=== PATIENT | male | born 1985 | race Caucasian/White ===

== ENCOUNTER → 2016-07-27 | Outpatient (CLI) | payer BC ==
--- NOTE | 2016-07-27 15:49 | DIAGNOSTIC IMAGING REPORT ---
ABDOMEN COMPLETE (US) CLINICAL HISTORY: Abdominal and back pain. COMPARISON STUDY: No previous studies for comparison. FINDINGS: The pancreas appears sonographically normal. The gallbladder appears sonographically normal. There is no ductal dilatation. The common bile duct measures 3 mm. There is a 7 mm echogenic focus within the left lobe of the liver. This is consistent with although not specific for a hepatic hemangioma. The right kidney measures 11.2 cm in length. The left kidney measures 10.5 cm in length. No focal renal masses are visualized. There is no hydronephrosis. There is no evidence of abdominal aortic dilatation. The IVC appears normal. Bilateral ureteral jets are visualized. The spleen is mildly enlarged measuring 13.2 cm. IMPRESSION: 1. Ultrasonographically normal gallbladder and pancreas. No evidence of ductal dilatation 2. Ultrasonographically normal kidneys 3. 7 mm echogenic focus within the left lobe of the liver. This is consistent with although not specific for a hepatic hemangioma 4. Mild splenomegaly (13.2 cm). Electronically signed by: Darin Patterson M.D. 07/27/2016 3:48 PM Dictated Date/Time: 07/27/2016 3:46 PM
== END | disposition home or self-care (01) ==
LOC: C.ULTR 14:59
PROVIDERS: ATTEND Physician Assistant
DX: M54.5 Low back pain (principal); R16.1 Splenomegaly, not elsewhere classified